=== PATIENT | male | born 1990 | race Caucasian/White ===

== ENCOUNTER 2022-06-16 11:57 | Emergency (ER) | payer OTHER ==
[~2022-06-16] VITALS: Ht 185.4 cm; Wt 72.6 kg
--- NOTE | 2022-06-16 12:16 | NUR ---
At bedside to examine pt.
--- NOTE | 2022-06-16 12:16 | NUR ---
MD AT BEDSIDE FOR EVALUATION
--- NOTE | 2022-06-16 12:30 | NUR ---
Labs drawn by Dry Heat Cabinet Attendant.
[2022-06-16 12:34] LABS: HEMATOCRIT 41.4 % (36.7-47.1); MEAN CORPUSCULAR HEMOGLOBIN 29.9 uug (23.8-33.4); MEAN CORPUSCULAR VOLUME 89.5 fL (73.0-96.2); PLATELET COUNT (AUTO) 192 K/uL (152-348)
[2022-06-16 12:54] LABS: CARBON DIOXIDE 31 mmol/L (21-32); CHLORIDE 106 mmol/L (98-107); CREATININE 0.7 mg/dL (0.6-1.3); GLUCOSE 98 mg/dL (74-106); POTASSIUM 3.8 mmol/L (3.5-5.1); UREA NITROGEN, BLOOD 12 mg/dL (7-18)
[2022-06-16] MEDS ORDERED: IBUP-1955 PO (13:25)
[2022-06-16] MEDS ORDERED: KETOROLAC TROMETHAMINE 15 MG INJ ONE (13:26)
[2022-06-16] MEDS ORDERED: KETOROLAC TROMETHAMINE 15 MG INJ IVP ONE (13:30)
--- NOTE | 2022-06-16 13:36 | NUR ---
DCD instructions given to pt. who verbalized understanding.
--- NOTE | 2022-06-16 13:37 | NUR ---
130/75 HR 96 [id number].
[2022-06-16 15:18] LABS: NEUTROPHILS % (MANUAL) 0 % (42-75)
== END 2022-06-16 13:37 | disposition home or self-care (01) ==
LOC: ER 11:57
DX: R07.9 Chest pain, unspecified (principal)
CPT/HCPCS: 99285; 96374; 71045; 80048; 85025; 84484; 36415; 93005; 85007; J1885; 70030-TC; A4663